=== PATIENT | male | born 1960 | race Caucasian/White ===

== ENCOUNTER 2016-04-10 15:22 | Emergency (ER) | payer MEDICAID ==
[2016-04-10 15:23] VITALS: BMI 29.0
[2016-04-10] MEDS ORDERED: ALBUTEROL 6.7 GM MDI INH ONE (16:36)
[2016-04-10 16:40] VITALS: BP 155/105; PULSE 91; TEMP 98.9
[2016-04-10] MEDS ORDERED: KETOROLAC TROMETHAMINE 10 MG TAB PO ONE (16:41)
--- NOTE | 2016-04-10 16:44 | EDPRACDOC ---
- General Information Stated Complaint: cough/kye/fever Time Seen by Provider: 04/10/16 16:36 Information Source: Patient Home Medications: Home Medications Aspirin [Aspirin EC] 81 mg PO DAILY 04/28/14 Omeprazole [Prilosec] 20 mg PO DAILY 04/28/14 Simvastatin 20 mg PO DAILY 04/28/14 Azithromycin [Zithromax] 0 mg PO DAILY #6 tablet 04/10/16 Ketorolac Tromethamine [Toradol] 10 mg PO Q6H PRN #20 tab 04/10/16 Prednisone [Sterapred Ds] 10 mg PO DIR #21 pack 04/10/16 Allergies/Adverse Reactions: Allergies Allergy/AdvReac Type Severity Reaction Status Date / Time No Known Allergies Allergy Verified 04/10/16 16:57 - History of Present Illness Onset: FRIDAY HPI: PT C/O COUGH CONGESTION SOB FEVERS CHILLS AND BODYACHES SINCE FRIDAY. STATES WAS SICK WITH CHEST COLD FOR SEVERAL WEEKS BUT THOUGHT WAS GETTING BETTER THEN STARTED GETTING WORSE. Shortness of Breath: Mild Relevant History of: Reports: None Cough: Reports: Productive, Clear Rhinorrhea: Reports: Clear Fever Severity/Quality: Reports: low grade Ear Symptoms: Reports: None Associated Signs & Symptoms: Reports: Cough, Fever, Nasal Symptoms, Myalgia, Other (SOB) Oral Intake: Normal Urinary Output: Normal ED Past Medical History - History Reviewed Yes Nurses notes reviewed and agree except as marked Travel Outside of [place] in the Last 3 Months?: No - Patient Medical History Cardiac History: Reports: Hypertension - Family Medical History Reports: Diabetes, Cancer, Cardiac Disorders - Social Medical History Smoking Status: Current some day smoker ETOH: None Substance Abuse: None Lives With: Other Lives In: Home EDM Review of Systems - Review of Systems ROS Negative Except as Marked: Yes All systems reviewed and were negative except as marked Constitutional: Chills, Fever, Other (MYALGIAS). negative: Fatigue, Loss of Appetite, Weakness Eyes: No Symptoms Reported. negative: Redness, Blurred Vision, Double Vision, Discharge, Pain, Light Sensitive, Photophobia Ears: No Symptoms Reported. negative: Pain, Hearing Loss, Drainage, Ear Pulling Throat: No Symptoms Reported. negative: Pain, Swelling Nose: Congestion, Discharge. negative: Abrasion, Bleeding, Deformity, Ecchymosis, Injection, Laceration, Swelling, Tender Mouth: No Symptoms Reported. negative: Pain, Drooling Respiratory: Cough, Shortness of Breath, Wheezing, Sputum (CLEAR). negative: Barky Cough, Brassy Cough, Hemoptysis Cardiovascular: No Symptoms Reported. negative: Chest Pain, Palpitations, Syncope, Edema, Orthopnea, PND, Skin Mottling, Cyanosis Gastrointestinal: No Symptoms Reported. negative: Pain, Constipation, Nausea, Vomiting, Diarrhea, Melena, Formula Intolerance Genitourinary: No Symptoms Reported. negative: Dysuria, Hematuria, Frequency, Discharge, Bleeding, Testicular Pain, Neurological: No Symptoms Reported. negative: Headache, Dizziness, Seizure, Numbness, Weakness, Speech Difficulty, Gait Difficulty Musculoskeletal: Other (MYALGIAS). negative: Arm, Ankle, Back, Chestwall, Elbow , Forearm, Femur, Foot, Hand, Hip, Knee, Leg, Neck, Pelvis, Ribs, Shoulder, Wrist Integumentary: No Symptoms Reported. negative: Itching, Rash, Bruising, Wound Allergic/Immunologic: No Symptoms Reported. negative: Hives, Itching Hematologic: No Symptoms Reported. negative: Lymphadenopathy, Easy Bruising, Easy Bleeding Endocrine: No Symptoms Reported. negative: Weight Gain, Weight Loss Psychiatric: No Symptoms Reported. negative: Anxiety, Depression, Hallucinations, Insomnia, Suicidal - Physical Exam Constitutional: Alert (Awake), No apparent distress Oriented to: Time, Person, Place Last recorded Vital Signs: Last Vital Signs Temp 98.9 F 04/10/16 16:39 Pulse 91 04/10/16 16:39 Resp 18 04/10/16 16:39 BP 155/105 H 04/10/16 16:39 Pulse Ox 98 04/10/16 16:39 Oxygen Pulse Oxygen Saturation 98 O2 Device Oxygen Flow Rate Fraction of Inspired Oxygen ( FIO2) - HEENT Head: Normal ( normocephalic) Eye Exam: Normal (PERRL, EOMI, Sclera white) Oropharynx: Red Tympanic Membrane: Normal ENT EAC: Normal TMJ: Normal Nose: No Symptoms Reported (septum midline) Neck: Normal (FROM, trachea at midline) - Respiratory/Cardiovascular Respiratory: Other (COARSE BREATH SOUNDS BILATERAL) Cardiovascular: Normal (RRR without murmur, gallop or rub) - GI Auscultation: Normal (NABS) Palpation: Normal (Soft,No rebound or guarding, non distended) Tenderness: Non tender Mclean's Sign: Negative - Bladder: Normal - Musculoskeletal Back: Normal (Non-Tender) Extremities: Normal (Normal tone, Pulses 2+ No cyanosis or edema, FROM) - Integumentary Skin: Normal, Warm, Dry Lymphatics: Normal (no adenopathy) - Neurologic Memory Impaired: Normal Motor Function: Normal (Normal tone, Pulses 2+ No cyanosis or edema, FROM) Cranial Nerve: Normal (CN II-X11 intact sensation, strength 5/5) Cerebellar: Normal Mood Description: Normal Perception: Normal - Differential Diagnosis Bronchitis, Influenza A B, Pneumonia, Sinusitis, URI, Viral - Diagnostic Imaging CXR Image interpreted by: Radiologist IMPRESSION: No active cardiopulmonary disease. Decision Time to Discharge: 17:04 - Departure Disposition: Home Condition: Stable Final Diagnosis: Acute bronchitis, Acute sinusitis Instructions: Acute Bronchitis (ED), Sinusitis (ED) Education/Counseling Given To: Patient Education/Counseling Given Regarding: Diagnosis, Treatment, Prognosis, Follow Up Referrals: Tye Schrader MD [Primary Care Provider] - One Week Prescriptions: Azithromycin [Zithromax] 0 mg PO DAILY #6 tablet Ketorolac Tromethamine [Toradol] 10 mg PO Q6H PRN #20 tab PRN Reason: Pain Prednisone [Sterapred Ds] 10 mg PO DIR #21 pack Additional Instructions: INCREASE PO FLUIDS. RETURN FOR WORE OR DIFFERENT SYMPTOMS.
--- NOTE | 2016-04-10 16:52 | DIRPT ---
CLINICAL DATA: Cough and chest congestion shortness of breath. Fever and body aches. EXAM: CHEST 2 VIEW COMPARISON: 09/18/2015 and 08/30/2010 FINDINGS: The heart size and mediastinal contours are within normal limits. Both lungs are clear. The visualized skeletal structures are unremarkable. IMPRESSION: No active cardiopulmonary disease. Electronically Signed By: Jhonathan Rose M.D. On: 04/10/2016 16:50
== END 2016-04-10 17:16 | disposition home or self-care (01) ==
LOC: EDMC 15:22
DX: J20.9 Acute bronchitis, unspecified (principal); J01.90 Acute sinusitis, unspecified; I10 Essential (primary) hypertension; Z72.0 Tobacco use; Z79.899 Other long term (current) drug therapy
CPT/HCPCS: 71020; 94640; 94664; 99283; J3490